=== PATIENT | female | born 1960 | race Caucasian/White ===

== ENCOUNTER 2020-03-30 14:42 | Emergency (ER) | payer SELFPAY ==
--- NOTE | 2020-03-30 16:12 | EKG REPORT ---
SEVERITY:- ABNORMAL ECG - SINUS RHYTHM PROBABLE LEFT ATRIAL ABNORMALITY NONSPECIFIC INTRAVENTRICULAR CONDUCTION DELAY : Confirmed by: Pancho Reeves MD 30-Mar-2020 16:11:48
--- NOTE | 2020-03-30 16:33 | ER Document Report ---
ED Medical Screen (RME) - General Chief Complaint: Palpitations Stated Complaint: HEART RACING,CHILS,HAND NUMBNESS Time Seen by Provider: 03/30/20 16:10 Mode of Arrival: Ambulatory Information source: Patient Notes: HPI; 60-year-old female presents to the emergency room complaining of chest pain, general body aches, palpitations for the past week. She describes her chest pain is midsternal and aching. She states "I just do not feel well". She states she felt like her blood pressure was elevated at home has been checking her blood pressures but she does not remember the numbers. States she had some leftover hydrochlorothiazide for some pedal edema tried taking all for the past 2 days without relief. She denies any shortness of breath or difficulty breathing. She denies any COVID-19 exposure. PE: Alert and oriented x3. Lungs: Clear to auscultation without rales, rhonchi, wheezes. Heart: Regular rate rhythm without murmurs, rubs, gallops. I have greeted and performed a rapid initial assessment of this patient. A comprehensive ED assessment and evaluation of the patient, analysis of test results and completion of the medical decision making process will be conducted by additional ED providers. I have specifically instructed the patient or family members with the patient to immediately return to any nursing staff should anything change in the patient's condition or with their chief complaint. TRAVEL OUTSIDE OF THE [place] IN LAST 30 DAYS: No Physical Exam - Vital signs Vitals: Temp Pulse Resp BP Pulse Ox 98.1 F 87 16 138/73 H 96 03/30/20 15:34 03/30/20 15:34 03/30/20 15:34 03/30/20 15:34 03/30/20 15:34 Course - Vital Signs Vital signs: Temp Pulse Resp BP Pulse Ox 98.1 F 87 16 138/73 H 96 03/30/20 15:34 03/30/20 15:34 03/30/20 15:34 03/30/20 15:34 03/30/20 15:34
--- NOTE | 2020-03-30 16:57 | RADIOLOGY REPORT (SQ) ---
EXAM DESCRIPTION: CHEST 2 VIEWS IMAGES COMPLETED DATE/TIME: 03/30/2020 4:48 pm REASON FOR STUDY: chest pain COMPARISON: None. EXAM PARAMETERS: NUMBER OF VIEWS: two views TECHNIQUE: Digital Frontal and Lateral radiographic views of the chest acquired. RADIATION DOSE: NA LIMITATIONS: none FINDINGS: LUNGS AND PLEURA: No opacities, masses or pneumothorax. No pleural effusion. MEDIASTINUM AND HILAR STRUCTURES: No masses or contour abnormalities. HEART AND VASCULAR STRUCTURES: Heart normal size. No evidence for failure. BONES: No acute findings. HARDWARE: Cholecystectomy clips. OTHER: No other significant finding. IMPRESSION: NO ACUTE RADIOGRAPHIC FINDING IN THE CHEST. TECHNICAL DOCUMENTATION: JOB ID: [id number] 2010 [employer]- All Rights Reserved Reading location - IP/workstation name: [email or web address]
[2020-03-30 17:06] LABS: ABSOLUTE BASOPHILS # (AUTO) 0.1 10^3/uL (0.0-0.2); ABSOLUTE EOSINOPHILS # (AUTO) 0.1 10^3/uL (0.0-0.6); ABSOLUTE LYMPHOCYTES (AUTO) 3.4 10^3/uL (0.5-4.7); ABSOLUTE MONOCYTES (AUTO) 0.6 10^3/uL (0.1-1.4); BASOPHILS % (AUTO) 1.1 % (0-2); HEMATOCRIT 43.3 % (36.0-47.0); HEMOGLOBIN 15.6 g/dL (12.0-15.5); LYMPHOCYTES % (AUTO) 25.8 % (13-45); MEAN CORPUSCULAR HEMOGLOBIN 31.9 pg (27.0-33.4); MEAN CORPUSCULAR VOLUME 89 fl (80-97); MONOCYTES % (AUTO) 4.5 % (3-13); PLATELET COUNT 457 10^3/uL (150-450); RED CELL DISTRIBUTION WIDTH 12.8 % (11.5-14.0); SEGMENTED NEUTROPHILS % (AUTO) 67.6 % (42-78); TOTAL CELLS COUNTED % (AUTO) 100 %; WHITE BLOOD COUNT 13.3 10^3/uL (4.0-10.5)
[2020-03-30 17:25] LABS: ALKALINE PHOSPHATASE 86 U/L (38-126); ANION GAP 9 (5-19); ASPARTATE AMINO TRANSFERASE 21 U/L (14-36); BILIRUBIN,DIRECT 0.2 mg/dL (0.0-0.4); BILIRUBIN,TOTAL 0.7 mg/dL (0.2-1.3); BLOOD UREA NITROGEN 15 mg/dL (7-20); CALCIUM 10.4 mg/dL (8.4-10.2); CARBON DIOXIDE 28 mmol/L (22-30); CHLORIDE 99 mmol/L (98-107); CREATINE KINASE 30 U/L (30-135); GLUCOSE 89 mg/dL (75-110); POTASSIUM 3.9 mmol/L (3.6-5.0); TOTAL PROTEIN 8.3 g/dL (6.3-8.2)
[2020-03-30 17:46] LABS: CREATINE KINASE MB < 0.22 ng/mL (<4.55); TROPONIN I < 0.012 ng/mL
[2020-03-30] MEDS ORDERED: KETOROLAC TROMETHAMINE 60 MG/2 ML SDV IM ONE (21:00)
--- NOTE | 2020-03-30 21:12 | ER Document Report ---
ED General - General Chief Complaint: Headache >24 hrs old Stated Complaint: HEART RACING,CHILS,HAND NUMBNESS Time Seen by Provider: 03/30/20 16:10 Mode of Arrival: Ambulatory TRAVEL OUTSIDE OF THE [place] IN LAST 30 DAYS: No - HPI Notes: Patient is a 60-year-old female with no significant past medical history who presents with multiple complaints. Patient states that she has felt off and on headaches, chills, bilateral hand and leg numbness for about 1 week. Patient states she has been very anxious about this. She was unable to sleep last night due to anxiety about this. She just moved to the area and does not have a PCP here and does not take any medications. Patient stated that her blood pressure has been high at home. She has also felt fluttering in her chest and has had palpitations. She denies any chest pain. No shortness of breath. No diarrhea, vomiting, abdominal pain. No fevers but states she has had chills. - Related Data Allergies/Adverse Reactions: Penicillins Allergy (Verified 03/30/20 18:36) Past Medical History - General Information source: Patient - Social History Smoking Status: Current Every Day Smoker Chew tobacco use (# tins/day): No Frequency of alcohol use: None Drug Abuse: None Family History: Reviewed & Not Pertinent Patient has homicidal ideation: No Review of Systems - Review of Systems Notes: CONSTITUTIONAL: No fever, fatigue or weight loss. SKIN: No rash. HENT: No congestion, ear pain, or sore throat. EYES: No recent vision problems or eye pain. CARDIOVASCULAR: No chest pain or edema. Positive for palpitations. RESPIRATORY: No cough, shortness of breath, congestion, or wheezing. GASTROINTESTINAL: No abdominal pain, nausea, vomiting, bloody stools or diarr hea. GENITOURINARY: No dysuria. MUSCULOSKELETAL: No joint pain or swelling. NEUROLOGIC: No seizures. No focal weakness or sensory changes. Positive for headaches. HEMATOLOGIC: No unusual bruising or bleeding. PSYCHIATRIC: No depression or anxiety. Physical Exam - Vital signs Vitals: Temp 97.9 F 03/30/20 14:43 - General General appearance: Anxious Notes: VITAL SIGNS: Within normal limits. GENERAL: No acute distress, non-toxic appearance. Appears anxious and tearful. HEAD: Normal with no signs of head trauma. EYES: EOMI, conjunctiva normal, no discharge. EARS: Hearing grossly intact. Bilateral tympanic membranes appear normal. NOSE: Normal. THROAT: Oropharynx is normal. NECK: Normal range of motion, no tenderness, supple, no lymphadenopathy, No adenopathy, no JVD. CHEST: Clear breath sounds bilaterally. No wheezes, rales, or rhonchi. CARDIAC: Regular rate and rhythm. S1 and S2, without murmurs, gallops, or ru bs. VASCULAR: No Edema. ABDOMEN: Normal and soft with no tenderness, no masses or pulsatile masses. MUSCULOSKELETAL: Good range of motion of all major joints. Extremities without clubbing, cyanosis or edema. Discomfort to paracervical palpation bilaterally. NEUROLOGICAL: Alert and oriented x 3. No focal sensory or strength deficits. Speech normal. Follows commands appropriately. PSYCHIATRIC: Normal Affect, judgement and mood. SKIN: Normal appearance with no rashes or lesions. Course - Re-evaluation Re-evalutation: 03/30/20 21:12 Patient appears anxious on exam. I reassured her and discussed her results with her. We will obtain a second troponin. Patient likely has a tension headache as she had reproducible paracervical discomfort with palpation. She states she has had headaches like this before. I will give her a dose of Toradol. I did offer IV fluids but patient declined. She states she would like to go home. I convinced patient to stay until the rest of the lab results are resulted. I also referred patient to the [facility] as she states she does not have insurance. Patient's lab work is unremarkable. She is very agreeable to the plan for follow-up. She feels better. Did offer her Covid testing due to the chills and headaches and she was in agreement. Patient was told to self isolate until she is called with a negative result. 03/30/20 21:13 03/31/20 03:36 - Vital Signs Vital signs: Temp Pulse Resp BP Pulse Ox 97.6 F 74 12 115/81 99 03/30/20 22:22 03/30/20 18:30 03/30/20 22:22 03/30/20 22:23 03/30/20 22:22 - Laboratory Results Result Diagrams: 03/30/20 16:42 03/30/20 16:42 Laboratory Results Interpreted: 03/30/20 03/30/20 16:42 16:42 WBC 13.3 H Hgb 15.6 H Plt Count 457 H Absolute Neuts (auto) 9.0 H Sodium 136.0 L Calcium 10.4 H Total Protein 8.3 H Critical Laboratory Results Reviewed: No Critical Results - Radiology Results Critical Radiology Results Reviewed: No Critical Results - EKG Interpretation by Me EKG shows normal: Sinus rhythm Rate: Normal Rhythm: NSR When compared to previous EKG there are: Previous EKG unavailable Additional EKG results interpreted by me: 03/30/20 21:52 Sinus rhythm at a rate of 87. QTc 462. No acute ST changes. No previous EKG available for comparison. Discharge - Discharge Clinical Impression: Chills, Palpitations, Myalgia Headache Qualifiers: Headache type: tension-type Headache chronicity pattern: acute headache Intractability: not intractable Qualified Code(s): G44.209 - Tension-type headache, unspecified, not intractable Condition: Stable Disposition: HOME, SELF-CARE Instructions: COVID-19 Guidance for Persons Under Investigation, Palpitations (Irregular or Rapid Heartrate) ([facility]) Additional Instructions: Your work-up today is reassuring. You were tested for COVID-19. You must self isolate until you are called with a negative result. Make sure you are staying hydrated. Please follow[facility]up with [facility]. Return to the ER immediately for any change of symptoms.
[2020-03-30 21:39] LABS: APPEARANCE,URINE CLEAR; BILIRUBIN,URINE NEGATIVE (NEGATIVE); COLOR,URINE STRAW; GLUCOSE, URINE NEGATIVE (NEGATIVE); KETONES,URINE NEGATIVE (NEGATIVE); LEUKOCYTE ESTERASE,URINE NEGATIVE (NEGATIVE); NITRITE,URINE NEGATIVE (NEGATIVE); PROTEIN,URINE NEGATIVE (NEGATIVE); URINE SPECIFIC GRAVITY 1.006; UROBILINOGEN,URINE NEGATIVE mg/dL (<2.0)
[2020-03-30 23:03] VITALS: BP 115/81
== END 2020-03-30 22:40 | disposition home or self-care (01) ==
LOC: ER 14:42
DX: G44.209 Tension-type headache, unspecified, not intractable (principal); R68.83 Chills (without fever); R20.0 Anesthesia of skin; R00.2 Palpitations; M79.10 Myalgia, unspecified site; F17.200 Nicotine dependence, unspecified, uncomplicated; Z20.828 Contact with and (suspected) exposure to other viral communicable diseases
CPT/HCPCS: 93005; 99285; 96372; 36415; 82553; 82550; 85025; 87635; 80053; 81001; 84484; 71046; 93010; J1885; C9803